=== PATIENT | male | born 1960 | race Caucasian/White ===

== ENCOUNTER 2021-10-23 08:40 | Outpatient (CLI) | payer BC | END 2021-10-23 08:41 | disposition home or self-care (01) | LOC: BICRAD 08:40 | PROVIDERS: ATTEND Nurse Practitioner Family | DX: M48.062 Spinal stenosis, lumbar region with neurogenic claudication (principal); M47.816 Spondylosis without myelopathy or radiculopathy, lumbar region | CPT/HCPCS: 72110 ==

== ENCOUNTER 2021-11-18 13:38 | Outpatient (CLI) | payer BC | END 2021-11-18 13:39 | disposition home or self-care (01) | LOC: SCSMRI 13:38 | PROVIDERS: ATTEND Specialist | DX: M48.062 Spinal stenosis, lumbar region with neurogenic claudication (principal); M47.816 Spondylosis without myelopathy or radiculopathy, lumbar region; M47.817 Spondylosis without myelopathy or radiculopathy, lumbosacral region | CPT/HCPCS: 72148 ==